=== PATIENT | male | born 1950 | race African-American/Black ===

== ENCOUNTER 2017-12-21 16:21 | Inpatient (IN) | payer MEDICARE ==
[~2017-12-21 16:21] MED LIST: ISOVUE-370 76%-LOCM 1 ML ONE
[2017-12-21] MEDS ORDERED: Albuterol Sulfate 1.25 MG/3 ML NEB ONE ×2 (17:00→17:02)
[2017-12-21] MEDS ORDERED: methylPREDNISolone Sod Succ/PF 125 MG/2 ML VIAL ONE (17:00)
[2017-12-21] MEDS ORDERED: Magnesium Sulfate 2 GM/100 ML BAG ONE (17:00)
[2017-12-21] MEDS ORDERED: Water For Inject, Bacteriostat 30 ML ONE (17:01)
--- NOTE | 2017-12-21 17:20 | RAD ---
PORTABLE UPRIGHT FRONTAL CHEST RADIOGRAPH: Date: 12-21-17 Comparison: None. History: Difficulty breathing. FINDINGS: Cardiac silhouette is prominent suggesting magnification and/or cardiomegaly. No pneumothorax or larg e volume pleural effusion is seen. There is pulmonary vascular prominence with interstitial opacity i n the perihilar regions. Detailed assessment is limited on the basis of patient body habitus and port able technique. Questionable mild right basilar airspace disease noted. IMPRESSION: Prominent cardiac silhouette with pulmonary vascular congestion and interstitial prominence suggestin g interstitial edema. Infectious process, particularly in the right lung base, cannot be excluded. Re commend PA and lateral imaging of the chest following treatment. POS: [facility]
[2017-12-21 18:01] LABS: #Basophils 0.1 thou/uL (0.0-0.2); #Lymphocytes 1.7 thou/uL (1.20-3.40); #Monocytes 0.7 thou/uL (0.11-0.59); #Neutrophils 3.9 thou/uL (1.40-6.50); %Basophils 1.1 % (0.0-1.0); %Eosinophils 0.4 % (0.0-10.0); %Lymphocytes 27.1 % (21.0-51.0); %Monocytes 10.9 % (0.0-10.0); %Neutrophils 60.4 % (42.0-75.0); Hemoglobin 14.9 g/dL (14.0-18.0); Mean Corpuscular HGB CONC 32.7 g/dL (32.0-36.0); Mean Corpuscular Hemoglobin 28.2 pg (27.0-31.0); Mean Corpuscular Volume 86.4 fl (80.0-94.0); Mean Platelet Volume 7.2 fL (7.4-10.4); Platelet Count 241 thou/uL (130-400); RBC Distribution Width 15.9 % (11.5-14.5); Red Blood Cell (RBC) Count 5.29 mill/uL (4.70-6.10); White Blood Cell (WBC) Count 6.4 thou/uL (4.8-10.8)
[2017-12-21 18:15] LABS: ALT (SGPT) 30 U/L (8-55); AST (SGOT) 30 U/L (5-34); Albumin 3.8 g/dL (3.4-4.8); Alkaline Phosphatase 85 U/L (40-150); Anion Gap 15 mmol/L (10-20); BUN (Urea Nitrogen) 17 mg/dL (8.4-25.7); Bilirubin, Total 0.5 mg/dL (0.2-1.2); Calc. Creatinine Clearance 0 mL/min (70-130); Carbon Dioxide 24 mmol/L (23-31); Chloride 100 mmol/L (98-107); Estimated GFR-MDRD 65; Globulin 4.4 g/dL (2.4-3.5); Glucose 119 mg/dL (80-115); Lipase 10 U/L (8-78); Potassium 3.2 mmol/L (3.5-5.1); Protein, Total 8.2 g/dL (5.8-8.1); Sodium 136 mmol/L (136-145)
[2017-12-21 18:18] LABS: CKMB 1.1 ng/mL (0-6.6); Troponin I 0.065 ng/mL (< 0.028)
[2017-12-21] MEDS ORDERED: Potassium Chloride 20 MEQ TAB ONE (19:22)
[2017-12-21] MEDS ORDERED: Furosemide 40 MG/4 ML VIAL ONE (19:22)
[2017-12-21] MEDS ORDERED: Furosemide 20 MG/2 ML VIAL ONE (19:22)
[2017-12-21] MEDS ORDERED: Azithromycin 500 MG in Sodium Chloride 0.9% 250 ML 250 ML IVPB SCH (20:15)
--- NOTE | 2017-12-21 20:31 | CT ---
CT OF THE CHEST WITH CONTRAST: Comparison: None. History: Dyspnea since yesterday with cough. Technique: Multiple contiguous axial images were obtained in a CTA of the chest with contrast perform ed with embolism protocol. Three oblique MIP reformats and direct coronal reformats were performed. FINDINGS: This exam is limited secondary to poor signal to noise ratio given the patient's large body habitus. The pulmonary arteries are opacified without large filling defects to suggest pulmonary emboli. The h eart is normal in size without focal cardiac abnormality. No hilar adenopathy is seen. There are mild ly enlarged mediastinal lymph nodes measuring up to 2.0 cm in short axis. There are multifocal areas of airspace opacity in the lungs. These are seen in the left lower lobe an d in the posterior aspect of the right middle lobe and are consistent with acute infiltrates. No pleu ral effusion or pneumothorax are seen. Calcifications are seen in the left hilar region and likely re present calcified left hilar lymph nodes. No suspicious pulmonary nodule is seen. There is scattered diverticula in the colon. The other visualized subdiaphragmatic structures are unr emarkable. Degenerative changes are seen in the spine. The chest wall soft tissues are unremarkable. IMPRESSION: 1. No evidence of pulmonary thromboembolism on this slightly limited exam. 2. Multifocal infiltrates. 3. Diverticulosis. 4. Nonspecific enlarged mediastinal lymph nodes. POS: [facility]
[2017-12-21] MEDS ORDERED: Ondansetron ODT 4 MG TAB SL PRN (20:51)
[2017-12-21] MEDS ORDERED: Acetaminophen 325 MG TAB PO PRN (20:51)
[2017-12-21] MEDS ORDERED: Ondansetron HCl/PF 4 MG/2 ML Vial IVP PRN (20:51)
[2017-12-21 21:05] VITALS: BMI 51.4
[2017-12-21 21:11] LABS: Troponin I 0.067 ng/mL (< 0.028)
[2017-12-21] MEDS ORDERED: HYDROcodone/Acetaminophen 7.5/325 mg Tablet PO PRN (22:34)
[2017-12-21] MEDS ORDERED: HumaLOG 300 UNITS/3 ML VIAL SC PRN ×2 (23:10)
[2017-12-21] MEDS ORDERED: Dextrose 50% Abboject 50 ML SYRINGE SLOW IVP PRN (23:10)
[2017-12-21] MEDS ORDERED: Dextrose 5% in Water 1,000 ML IV PRN (23:10)
[2017-12-21] MEDS ORDERED: Oxymetazoline HCl 0.05% ( 15 ML ) NASAL SCH (23:15)
[2017-12-21 23:22] LABS: Actual Bicarbonate (HCO3a) 26.4 mEq/L (22-26); Base Excess (BEa) -0.8 mEq/L (0 (+/-) 2.5); CO2 Tension 54.3 mmHg (35.0-45.0); Hemoglobin (Hb) 14.3 g/dL (14.0-18.0); O2 Tension (PaO2) 71.8 mmHg (80.0-100.0); pH, Arterial 7.31 (7.35-7.45)
[2017-12-21 23:23] LABS: ALV-art Gradient 214.325 (0-20); Calcium, Ionized 1.1 mmol/L (1.12-1.30); Puncture Site LRA
[2017-12-21] MEDS ORDERED: Carvedilol 3.125 MG TAB PO SCH (23:30)
[2017-12-21] MEDS: Albuterol Sulfate 2.5 mg/3 ml Neb NEB PRN (23:45)
--- NOTE | 2017-12-22 00:24 | HP ---
DATE OF ADMISSION: 12/21/2017 CHIEF COMPLAINT: Shortness of breath. HISTORY OF PRESENT ILLNESS: This is a 67-year-old morbidly obese -[place] male with known hi story of hypertension and type 2 diabetes mellitus. He went to his primary care physician today as h e was having some congestion in his nose and was having some fever for the past few days. When he pr esented there, his primary care physician at [place], he checked his saturations which were low in 80s , so he sent the patient to [facility] via EMS. When the patient arrived here, he had low saturat ions in 80s and had to put on rebreather mask. The patient was noted to have elevated BNP and has ne olivia diagnosed with CHF or no history of any coronary artery disease in the past. The patient had a C T of the chest. He had elevated D-dimer, which did not show any evidence of pulmonary embolism, but showed multifocal pneumonia. The patient was admitted to the [facility] and the patient was seen over there. He was alert and oriented. He continues to be on the Ventimask and was saturating 92%-94%. No ABG was ordered. The patient w as able to sleep deeply and had to wake him up from sleep. He denied having any chest pain, no nause a, no vomiting, no diarrhea, no constipation. He did have cough, nonproductive for the past few days . He denies having any exposure to sick people. PAST MEDICAL HISTORY: 1. Type 2 diabetes mellitus. 2. Hypertension. PAST SURGICAL HISTORY: None. SOCIAL HISTORY: The patient is a nonsmoker. No history of alcohol. No history of illicit drug use. FAMILY HISTORY: No significant family history of coronary artery disease or any premature deaths in the family. REVIEW OF SYSTEMS: All 12 systems are reviewed with the patient thoroughly and found to be negative. The following complete review of systems was negative, unless otherwise mentioned in the HPI or bel ow: Constitutional: Weight loss or gain, sense of well-being, ability to conduct usual activities, exercise tolerance. Skin/Breast: Rash, itching, changes in hair growth or loss, nail changes, breas t lumps, tenderness, swelling, nipple discharge. Eyes: Vision, double vision, tearing, blind spots, pain. ENT/Mouth: Headaches (location, time of o nset, duration, precipitating factors), vertigo, lightheadedness, injury. Vision, double vision, tea ring, blind spots, pain, nose bleeding, colds, obstruction, discharge, dental difficulties, gingival bleeding, dentures, neck stiffness, pain, tenderness, masses in thyroid or other areas Cardiovascular: Precordial pain, substernal distress, palpitations, syncope, dyspnea on exertion, ort hopnea, nocturnal paroxysmal dyspnea, edema, cyanosis, hypertension, heart murmurs, varicosities, phl ebitis, claudication. Respiratory: Pain, shortness of breath, wheezing, stridor, cough, hemoptysis, fever or night sweats. Gastrointestinal: Poor appetite, dysphagia, indigestion, abdominal pain, he artburn, eructation, nausea, vomiting, hematemesis, jaundice, constipation, or diarrhea, abnormal sto ols (goldie-colored, tarry, bloody, greasy, foul smelling), flatulence, hemorrhoids, recent changes in bowel habits. Genitourinary: Urgency, frequency, dysuria, nocturia, hematuria, polyuria, oliguria, unusual (or change in) color of urine, stones, hesitancy, change in size of stream, dribbling, acute retention or incontinence, libido, potency. Musculoskeletal: Pain, swelling, redness or heat of muscles or joints, limitation, of motion, muscul ar weakness, atrophy, cramps. Neurologic/Psychiatric: Convulsions, paralyses, tremor, incoordinatio n, paresthesias, difficulties with memory of speech, sensory or motor disturbances, or muscular coord ination (ataxia, tremor), emotional problems, anxiety, depression, previous psychiatric care, unusual perceptions, hallucinations. Allergy/Immunologic: Skin rash, anemia, bleeding tendency, polydipsia , polyuria, intolerance to heat or cold. ALLERGIES: LISINOPRIL. HOME MEDICATIONS: 1. Aspirin 81 mg p.o. daily. 2. Diltiazem 240 mg p.o. daily. 3. Hydrochlorothiazide 25 mg p.o. daily. 4. Indomethacin 50 mg p.o. t.i.d. 5. Linagliptin Tradjenta 5 mg p.o. daily. 6. Metformin 1000 mg p.o. b.i.d. 7. Simvastatin 20 mg p.o. daily. PHYSICAL EXAMINATION: VITAL SIGNS: Blood pressures are 145/81, heart rate is 100, respiratory rate is 24, saturations 95% on Venturi mask. GENERAL: The patient is seen lying in the bed supine with Ventimask, he was drowsy at this time, oth erwise, oriented when he woke up. HEENT: Atraumatic, normocephalic. PERRLA. Extraocular movements were intact. Oral mucosa is pink and moist. CARDIOVASCULAR: S1, S2 normal. No murmurs, rubs or gallops. LUNGS: Bilateral air entry was equal. No wheezing and no crackles, but increased respiratory rate w as noted. ABDOMEN: Soft, nontender, no guarding, no rebound tenderness. Bowel sounds normal. MUSCULOSKELETAL: No calf tenderness. No pedal edema, no joint tenderness, no joint swelling. SKIN: No cyanosis, no erythema, no rash, no pallor. CENTRAL NERVOUS SYSTEM: Cranial nerve examination II-XII intact. No focal deficits were noted. PSYCHIATRIC: No signs of suicidal ideation, no signs of jeyson was noted. NECK: No JVD was noted. No thyromegaly was noted. LABORATORY DATA: Sodium is 136, potassium is 3.2, chloride is 100, bicarbonate is 24, BUN is 17, cre atinine 1.3, blood sugar 119. Troponin 0.065. BNP was 1200. D-dimer 1.0. WBC 6.4, hemoglobin is 1 4.9, hematocrit is 45.7. ASSESSMENT: 1. Acute hypoxic respiratory failure. 2. Acute multifocal pneumonia. 3. Acute on chronic congestive heart failure, likely diastolic dysfunction. 4. Sbp-KD-njclcfczo myocardial infarction. 5. Acute hypokalemia. 6. Type 2 diabetes mellitus. 7. Hypertension. 8. Hyperlipidemia. PLAN: 1. The plan is to closely monitor this patient in the IMCU as the patient is on Ventimask. We will d o an ABG at this time to know the level of oxygenation. If the patient has elevated CO2, we will sta rt the patient on the BiPAP. 2. We will continue the patient on IV antibiotics. The patient has been started on azithromycin wit hout Rocephin 1 gram daily. We will closely monitor. The patient has a normal white count. 3. The patient has markedly elevated BNP with no history of congestive heart failure. We will do a 2D echo at this time and look for any wall motion abnormalities. The patient has elevated troponins most likely from the demand ischemia. We will start the patient on the beta jose and continue the patient with aspirin and statin. 4. We will plan to consult Cardiology if any worsening troponins or any worsening chest pain. 5. The patient has type 2 diabetes mellitus, well controlled. We will continue the patient on Tradj enta and we will start the patient on sliding scale insulin. 6. The patient has signs of acute sinusitis, we will do Nasonex twice a day and aspirin twice a day, we will closely monitor. 7. Deep venous thrombosis prophylaxis. Lovenox 40 mg subcutaneously daily. I spent 75 minutes with this patient. Of this, one hour as critical care time.
[2017-12-22] MEDS: Albuterol Sulfate 2.5 mg/3 ml Neb NEB PRN (03:01)
[2017-12-22 05:15] LABS: Anion Gap 15 mmol/L (10-20); BUN (Urea Nitrogen) 23 mg/dL (8.4-25.7); Calc. Creatinine Clearance 101 mL/min (70-130); Calcium 9.1 mg/dL (7.8-10.44); Carbon Dioxide 28 mmol/L (23-31); Chloride 100 mmol/L (98-107); Estimated GFR-MDRD 53; Glucose 178 mg/dL (80-115); Potassium 3.9 mmol/L (3.5-5.1); Sodium 139 mmol/L (136-145)
[2017-12-22] MEDS: Furosemide 20 MG/2 ML VIAL SLOW IVP SCH ×2 (05:36→14:48)
[2017-12-22 05:42] LABS: #Lymphocytes 0.6 thou/uL (1.20-3.40); #Monocytes 0.1 thou/uL (0.11-0.59); #Neutrophils 3.4 thou/uL (1.40-6.50); %Basophils 0.4 % (0.0-1.0); %Eosinophils 0.3 % (0.0-10.0); %Monocytes 2.2 % (0.0-10.0); %Neutrophils 83.1 % (42.0-75.0); Hemoglobin 14.1 g/dL (14.0-18.0); Mean Corpuscular HGB CONC 30.2 g/dL (32.0-36.0); Mean Corpuscular Hemoglobin 26.1 pg (27.0-31.0); Mean Corpuscular Volume 86.4 fl (80.0-94.0); Mean Platelet Volume 7.1 fL (7.4-10.4); Platelet Count 268 thou/uL (130-400); RBC Distribution Width 16.1 % (11.5-14.5); Red Blood Cell (RBC) Count 5.42 mill/uL (4.70-6.10); White Blood Cell (WBC) Count 4.1 thou/uL (4.8-10.8)
[2017-12-22] MEDS: Hydrochlorothiazide 25 MG TAB PO SCH (08:18)
[2017-12-22] MEDS: Famotidine/PF 20 mg/2ml Vial SLOW IVP SCH ×2 (08:18→21:11)
[2017-12-22] MEDS: Carvedilol 3.125 MG TAB PO SCH ×2 (08:18→21:11)
[2017-12-22] MEDS: Alogliptin 25 MG TAB PO SCH (08:19)
[2017-12-22] MEDS: Oxymetazoline HCl 0.05% ( 15 ML ) NASAL SCH ×2 (08:19→21:09)
[2017-12-22] MEDS: Enoxaparin Sodium 40 MG/0.4 ML SYRINGE SC SCH (08:22)
[2017-12-22] MEDS: Fluticasone Propionate Nasal Spray 16 gm Bottle NASAL SCH ×2 (08:23→21:34)
[2017-12-22] MEDS ORDERED: Non-Formulary Item 1 EACH (Linagliptin [Tradjenta] 5 MG) PO SCH (09:00)
[2017-12-22] MEDS ORDERED: Prevnar 13-Val Conj/PF 0.5 ML SYRINGE IM ONE (09:00)
[2017-12-22] MEDS: Doxycycline 100 MG CAP PO SCH ×2 (10:00→21:10)
--- NOTE | 2017-12-22 10:31 | PDOC.PN ---
- Subjective Encounter Start Date: 12/22/17 Encounter Start Time: 10:29 Subjective: mild congestion - Objective Resuscitation Status: Resuscitation Status FULL:Full Resuscitation MAR Reviewed: Yes Vital Signs & Weight: Vital Signs (12 hours) Temp Pulse Resp BP BP Pulse Ox 12/22/17 08:18 82 137/86 12/22/17 08:04 82 22 H 88 L 12/22/17 07:56 97.0 F L 84 20 93 L 12/22/17 07:39 97.0 F L 84 20 111/74 96 12/22/17 07:17 97.8 F 86 18 111/74 92 L 12/22/17 04:00 96.3 F L 79 18 122/72 96 12/22/17 03:01 80 20 92 L 12/22/17 00:00 96.3 F L 85 22 H 138/62 91 L 12/21/17 23:45 91 20 95 Weight Weight 347 lb 12.8 oz I&O: 12/21/17 12/22/17 12/23/17 06:59 06:59 06:59 Intake Total 470 320 Output Total 575 Balance -105 320 Result Diagrams: 12/22/17 04:13 12/22/17 04:13 Additional Labs: Accuchecks 12/22/17 12/21/17 05:48 21:14 POC Glucose 147 H 171 H Phys Exam - Physical Examination Neck: no JVD scattered wheezes, rhonchi Cardiovascular: RRR, no significant murmur Gastrointestinal: soft, non-tender, positive bowel sounds Musculoskeletal: edema present Dx/Plan (1) PNA (pneumonia) Code(s): J18.9 - PNEUMONIA, UNSPECIFIED ORGANISM Status: Acute Qualifiers: Aspiration pneumonia type: unspecified Laterality: unspecified laterality Lung location: unspecified part of lung (2) HTN (hypertension) Code(s): I10 - ESSENTIAL (PRIMARY) HYPERTENSION Status: Acute Qualifiers: Hypertension type: essential hypertension Qualified Code(s): I10 - Essential (primary) hypertension (3) DM type 2 causing CKD stage 3 Code(s): E11.22 - TYPE 2 DIABETES MELLITUS W DIABETIC CHRONIC KIDNEY DISEASE; N18.3 - CHRONIC KIDNEY DISEASE, STAGE 3 (MODERATE) Status: Acute Qualifiers: Diabetes mellitus long-term insulin use: without long-term use Qualified Code(s): E11.22 - Type 2 diabetes mellitus with diabetic chronic kidney disease ; N18.3 - Chronic kidney disease, stage 3 (moderate); N18.3 - Chronic kidney disease, stage 3 (moderate) (4) Acute respiratory failure with hypoxia and hypercapnia Code(s): J96.01 - ACUTE RESPIRATORY FAILURE WITH HYPOXIA; J96.02 - ACUTE RESPIRATORY FAILURE WITH HYPERCAPNIA Status: Acute - Plan cont antibx,etc -: obtain echo results -: avoid indocin -: accu/ss / OHA * .
--- NOTE | 2017-12-22 12:01 | CON ---
DATE OF CONSULTATION: 12/22/2017 Tino Berrios is a morbidly obese male who sees Dr. Mei in [place]. He says pieter murray sees Dr. Monterroso at [facility] once here for cardiac issues. He presented yesterday with sinus infection for 3 days, some shortness of breath and cough, but he de nies any fever or chills. He smoked 2 packs a day for almost 20 years, quit smoking 35 years ago without any prior history of T B, pneumonia or bronchial asthma. He states he sleeps well, does not snore, does not feel tired, unc lear how much he walks on a regular day. PAST MEDICAL HISTORY: Pertinent for hypertension and diabetes. Unknown coronary artery disease. PAST SURGICAL HISTORY: Surprisingly none. TOBACCO AND ALCOHOL: Tobacco and alcohol as noted. Quit smoking 35 years ago. No alcohol. MEDICATIONS: His list of medicine from home has included metformin 1000 twice a day, Zocor 20, Tradj enta 5, indomethacin 50, hydrochlorithiazide 25, Cardizem 240, aspirin 81. 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 ALLERGIES: LISINOPRIL. REVIEW OF SYSTEMS: Otherwise, 10 point negative. Please note I reviewed all his old x-rays. No medical records in this hospital. PHYSICAL EXAMINATION: VITAL SIGNS: Blood pressure 130/86, sats 88 on 5 liters, temperature 97, respirations 18. CHEST: Chest revealed decreased breath sounds with minimal wheezing. Expiration prolonged. CARDIAC: Normal S1-S2. No gallops. ABDOMEN: Soft. No masses. LABORATORY: PO2 71, pCO2 40.54. His pH 7.31. Electrolytes are normal. Creatinine 1.59, glucose 14 7. BNP is 1299. X-ray shows cardiomegaly. His thyroid function is not seen, it is being ordered. D-dimer was slight ly elevated. He had a CT angio done which shows no PE, bilateral infiltrates. IMPRESSION: 1. Chronic sinusitis. 2. Morbid obesity, possible sleep apnea. 3. Abnormal x-ray, probably a pneumonia. 4. Chronic obstructive pulmonary disease exacerbation. 5. Renal failure. 6. Diabetes. PLAN: Significant hypoxemia persists. An echo has been ordered. I agree with nebulizer treatments, steroids, and antibiotics. Nocturnal ventilation. He probably needs an outpatient sleep study . I will follow. This is a consultation note, 70 minutes of which 50% in direct patient care.
[2017-12-22] MEDS ORDERED: cefTRIAXone\\ROCEPHIN 2 GM in Sodium Chloride 0.9% 100 ML IVPB SCH (20:00)
[2017-12-22] MEDS ORDERED: Simvastatin 20 MG TAB PO SCH (21:00)
[2017-12-22] MEDS: Atorvastatin Calcium 10 MG TAB PO SCH (21:11)
[2017-12-23 04:13] LABS: #Lymphocytes 1.3 thou/uL (1.20-3.40); #Monocytes 0.8 thou/uL (0.11-0.59); %Basophils 0.3 % (0.0-1.0); %Eosinophils 0.1 % (0.0-10.0); %Lymphocytes 17.8 % (21.0-51.0); %Monocytes 11.2 % (0.0-10.0); %Neutrophils 70.6 % (42.0-75.0); Hemoglobin 14.7 g/dL (14.0-18.0); Mean Corpuscular HGB CONC 31.5 g/dL (32.0-36.0); Mean Corpuscular Volume 88.8 fl (80.0-94.0); Mean Platelet Volume 7.5 fL (7.4-10.4); Platelet Count 267 thou/uL (130-400); RBC Distribution Width 15.9 % (11.5-14.5); Red Blood Cell (RBC) Count 5.27 mill/uL (4.70-6.10); White Blood Cell (WBC) Count 7.1 thou/uL (4.8-10.8)
[2017-12-23 04:29] LABS: Anion Gap 15 mmol/L (10-20); BUN (Urea Nitrogen) 35 mg/dL (8.4-25.7); Calc. Creatinine Clearance 105 mL/min (70-130); Calcium 9.1 mg/dL (7.8-10.44); Carbon Dioxide 28 mmol/L (23-31); Chloride 100 mmol/L (98-107); Estimated GFR-MDRD 55; Glucose 146 mg/dL (80-115); Potassium 3.9 mmol/L (3.5-5.1); Sodium 139 mmol/L (136-145)
[2017-12-23] MEDS: Furosemide 20 MG/2 ML VIAL SLOW IVP SCH ×2 (05:53→13:30)
--- NOTE | 2017-12-23 08:14 | PRG ---
DATE OF SERVICE: 12/23/2017 He is awake, alert, responsive. Still complaining of some sinus congestion. PHYSICAL EXAMINATION: VITAL SIGNS: His sats are 96 on 4 liters, blood pressure 150/89, respirations 18, temperature 98. CHEST: Chest revealed decreased breath sounds, no wheezing. CARDIAC: Normal S1-S2. No gallops. ABDOMEN: Soft, no masses. LABORATORY: White count normal 7000, H&H of 14 and 43, platelet count normal. Creatinine 1.5. IMPRESSION: 1. Pneumonia. 2. Sinusitis. PLAN: I have switched over to oral antibiotics. Saline nasal spray was initiated several times a da y. He can be transferred out of the [facility]. Probably would benefit from an outpatient sleep study.
[2017-12-23] MEDS: predniSONE 20 MG TAB PO SCH (08:20)
[2017-12-23] MEDS: Carvedilol 3.125 MG TAB PO SCH ×2 (08:21→21:53)
[2017-12-23] MEDS: Alogliptin 25 MG TAB PO SCH (08:21)
[2017-12-23] MEDS: Doxycycline 100 MG CAP PO SCH ×2 (08:22→21:53)
[2017-12-23] MEDS: Enoxaparin Sodium 40 MG/0.4 ML SYRINGE SC SCH (08:22)
[2017-12-23] MEDS: Hydrochlorothiazide 25 MG TAB PO SCH (08:23)
[2017-12-23] MEDS: Famotidine/PF 20 mg/2ml Vial SLOW IVP SCH ×2 (08:23→21:45)
[2017-12-23] MEDS: Fluticasone Propionate Nasal Spray 16 gm Bottle NASAL SCH ×2 (08:23→21:52)
[2017-12-23] MEDS: Sodium Chloride 0.65% Nasal 44 ML BOT EA NARE SCH ×3 (10:30→22:01)
--- NOTE | 2017-12-23 10:53 | PDOC.PN ---
- Subjective Encounter Start Date: 12/23/17 Encounter Start Time: 10:52 Subjective: less sob, no fever - Objective Resuscitation Status: Resuscitation Status FULL:Full Resuscitation MAR Reviewed: Yes Vital Signs & Weight: Vital Signs (12 hours) Temp Pulse Resp BP BP BP Pulse Ox 12/23/17 10:50 79 20 92 L 12/23/17 08:21 86 129/89 12/23/17 08:04 82 16 12/23/17 08:00 98.1 F 77 18 97 12/23/17 07:49 98.1 F 77 18 150/79 H 97 12/23/17 04:00 97.7 F 85 22 H 138/75 92 L 12/23/17 00:00 98.3 F 77 21 H 126/54 L 91 L Weight Weight 346 lb 5.539 oz I&O: 12/22/17 12/23/17 12/24/17 06:59 06:59 06:59 Intake Total 470 1020 Output Total 575 Balance -105 1020 Result Diagrams: 12/23/17 03:28 12/23/17 03:28 Additional Labs: Accuchecks 12/23/17 12/23/17 12/22/17 10:33 05:54 21:17 POC Glucose 200 H 124 H 155 H 12/22/17 16:37 POC Glucose 115 H Phys Exam - Physical Examination Neck: no JVD mild wheezes, rhonchi diffuse over all [place] Cardiovascular: RRR, no significant murmur Gastrointestinal: soft, non-tender, positive bowel sounds Musculoskeletal: edema present Dx/Plan (1) PNA (pneumonia) Code(s): J18.9 - PNEUMONIA, UNSPECIFIED ORGANISM Status: Acute Qualifiers: Aspiration pneumonia type: unspecified Laterality: unspecified laterality Lung location: unspecified part of lung (2) HTN (hypertension) Code(s): I10 - ESSENTIAL (PRIMARY) HYPERTENSION Status: Acute Qualifiers: Hypertension type: essential hypertension Qualified Code(s): I10 - Essential (primary) hypertension (3) DM type 2 causing CKD stage 3 Code(s): E11.22 - TYPE 2 DIABETES MELLITUS W DIABETIC CHRONIC KIDNEY DISEASE; N18.3 - CHRONIC KIDNEY DISEASE, STAGE 3 (MODERATE) Status: Acute Qualifiers: Diabetes mellitus mcc insulin use: without long term care phlebotomist use Qualified Code(s): E11.22 - Type 2 diabetes mellitus with diabetic chronic kidney disease ; N18.3 - Chronic kidney disease, stage 3 (moderate); N18.3 - Chronic kidney disease, stage 3 (moderate) (4) Acute respiratory failure with hypoxia and hypercapnia Code(s): J96.01 - ACUTE RESPIRATORY FAILURE WITH HYPOXIA; J96.02 - ACUTE RESPIRATORY FAILURE WITH HYPERCAPNIA Status: Acute - Plan echo still pending -: blood C&S neg, cont current antibx -: cont nebs , steroids -: cont accu/ss/oral hypoglycemic * .
[2017-12-23] MEDS ORDERED: Metolazone 5 MG TAB PO SCH (14:00)
--- NOTE | 2017-12-23 15:21 | RAD ---
RADIOGRAPH CHEST 1 VIEW: Date: 12/23/2017 Time: 12:59 p.m. HISTORY: A 67-year-old male with hypoxemia. COMPARISON: 12/21/2017 FINDINGS: Cardiomegaly. Pulmonary vascular engorgement, diffusely. Air space density in the right medial lung base is worse than before. This was shown by the subsequent CTA of 12/21/2017 to be localized to th e right middle lobe. That CTA also showed an air space density in the contralateral left lower lobe, which is obscured by the cardiac shadow on the current study. No pneumothorax. IMPRESSION: 1. Interval worsening of right middle lobe infiltrate, evidence for worsening right middle lobe pneu monia. 2. The known left lower lobe infiltrate is difficult to visualize. 3. Cardiomegaly and pulmonary vascular engorgement is evidence for minimal or mild congestive heart failure. AFUA [] POS: [facility]
--- NOTE | 2017-12-23 16:55 | PDOC.EVN ---
Event Note - Event Note Event Note: patient comfortable. O2 sats high *)s. cxr adverse PVC. start higher dose iv lasix. echo results still pending
[2017-12-23] MEDS: Furosemide 100 MG/10 ML VIAL SLOW IVP SCH ×2 (17:22→17:23)
[2017-12-23] MEDS: Atorvastatin Calcium 10 MG TAB PO SCH (21:53)
[2017-12-24] MEDS: Furosemide 100 MG/10 ML VIAL SLOW IVP SCH (06:33)
--- NOTE | 2017-12-24 08:15 | PDOC.PN ---
- Subjective Encounter Start Date: 12/24/17 Encounter Start Time: 08:14 Mr. Berrios was seen today in follow-up today of acute respiratory failure. He is still short of breath, but says he is a little better today than yesterday. - Objective Resuscitation Status: Resuscitation Status FULL:Full Resuscitation MAR Reviewed: Yes Vital Signs & Weight: Vital Signs (12 hours) Temp Pulse Resp BP BP Pulse Ox 12/24/17 07:14 97.6 F 89 18 157/86 H 90 L 12/24/17 07:04 94 24 H 93 L 12/24/17 04:00 98.5 F 72 20 124/63 96 12/24/17 00:00 98.0 F 84 22 H 146/69 H 95 Weight Weight 344 lb 5.793 oz I&O: 12/23/17 12/24/17 12/25/17 06:59 06:59 06:59 Intake Total 1020 2032 Balance 1020 2032 Result Diagrams: 12/23/17 03:28 12/23/17 03:28 Additional Labs: Accuchecks 12/24/17 12/23/17 12/23/17 06:20 21:53 16:34 POC Glucose 134 H 119 H 123 H 12/23/17 10:33 POC Glucose 200 H Phys Exam - Physical Examination HEENT: PERRLA Respiratory: no rhonchi, wheezing present + rales at the bases, Cardiovascular: RRR, no significant murmur, no rub Gastrointestinal: soft, non-tender, positive bowel sounds Musculoskeletal: edema present trace pedal edema Dx/Plan (1) Pneumonia, community acquired Code(s): J18.9 - PNEUMONIA, UNSPECIFIED ORGANISM Status: Acute (2) Morbid obesity with BMI of 50.0-59.9, adult Code(s): E66.01 - MORBID (SEVERE) OBESITY DUE TO EXCESS CALORIES; Z68.43 - BODY MASS INDEX (BMI) 50-59.9 , ADULT Status: Acute (3) Acute respiratory failure with hypoxia and hypercapnia Code(s): J96.01 - ACUTE RESPIRATORY FAILURE WITH HYPOXIA; J96.02 - ACUTE RESPIRATORY FAILURE WITH HYPERCAPNIA Status: Acute (4) DM type 2 causing CKD stage 3 Code(s): E11.22 - TYPE 2 DIABETES MELLITUS W DIABETIC CHRONIC KIDNEY DISEASE; N18.3 - CHRONIC KIDNEY DISEASE, STAGE 3 (MODERATE) Status: Acute Qualifiers: Diabetes mellitus fci insulin use: without track man use Qualified Code(s): E11.22 - Type 2 diabetes mellitus with diabetic chronic kidney disease ; N18.3 - Chronic kidney disease, stage 3 (moderate); N18.3 - Chronic kidney disease, stage 3 (moderate) (5) HTN (hypertension) Code(s): I10 - ESSENTIAL (PRIMARY) HYPERTENSION Status: Acute Qualifiers: Hypertension type: essential hypertension Qualified Code(s): I10 - Essential (primary) hypertension - Plan * Pneumonia- chest X-ray results noted- continue Doxycycline, and await further recommendations from Pulmonology * Possible heart failure- await the results of the Echo * Probable Obesity Hypoventilation- continue BiPAP at night- I discussed with patient that he should have an outpatient sleep study * HTN- blood pressure is stable * CKD- stable- will check a renal panel today.
--- NOTE | 2017-12-24 08:50 | PRG ---
DATE OF SERVICE: 12/24/2017 Awake, alert, responsive. Secondary to results of the echo and x-ray yesterday shows no obvious infi ltrate. PHYSICAL EXAMINATION: VITAL SIGNS: Sats are 90 on 5 liters, temperature 97, blood pressure 137/87. CHEST: Chest revealed decreased breath sounds, no wheezing. CARDIAC: Normal S1-S2. No gallops. ABDOMEN: Soft. No masses. IMPRESSION: 1. Acute on chronic respiratory failure. 2. Morbid obesity. 3. Sleep apnea. 4. Probably congestive heart failure. 5. Renal failure. PLAN: Neb treatments, steroids, BiPAP. He needs a sleep study. Aggressive PT. I will follow.
[2017-12-24 09:22] LABS: Anion Gap 13 mmol/L (10-20); BUN (Urea Nitrogen) 41 mg/dL (8.4-25.7); Calc. Creatinine Clearance 114 mL/min (70-130); Calcium 9.1 mg/dL (7.8-10.44); Carbon Dioxide 36 mmol/L (23-31); Chloride 94 mmol/L (98-107); Estimated GFR-MDRD 62; Glucose 158 mg/dL (80-115); Potassium 3.3 mmol/L (3.5-5.1); Sodium 140 mmol/L (136-145)
[2017-12-24] MEDS: Carvedilol 3.125 MG TAB PO SCH ×2 (09:51→22:00)
[2017-12-24] MEDS: Alogliptin 25 MG TAB PO SCH (09:51)
[2017-12-24] MEDS: Doxycycline 100 MG CAP PO SCH ×2 (09:51→21:59)
[2017-12-24] MEDS: predniSONE 20 MG TAB PO SCH (09:51)
[2017-12-24] MEDS: Enoxaparin Sodium 40 MG/0.4 ML SYRINGE SC SCH (09:52)
[2017-12-24] MEDS: Sodium Chloride 0.65% Nasal 44 ML BOT EA NARE SCH ×3 (09:53→22:01)
[2017-12-24] MEDS: Famotidine/PF 20 mg/2ml Vial SLOW IVP SCH (09:53)
[2017-12-24] MEDS: Fluticasone Propionate Nasal Spray 16 gm Bottle NASAL SCH ×2 (09:53→22:02)
[2017-12-24] MEDS: Atorvastatin Calcium 10 MG TAB PO SCH (21:59)
[2017-12-24] MEDS: Famotidine 20 MG TAB PO SCH (21:59)
[2017-12-25 05:05] LABS: BUN (Urea Nitrogen) 37 mg/dL (8.4-25.7); Calc. Creatinine Clearance 133 mL/min (70-130); Calcium 9.2 mg/dL (7.8-10.44); Estimated GFR-MDRD 74; Glucose 124 mg/dL (80-115)
[2017-12-25 05:14] LABS: Anion Gap 16 mmol/L (10-20); Carbon Dioxide 34 mmol/L (23-31); Chloride 92 mmol/L (98-107); Potassium 3.7 mmol/L (3.5-5.1); Sodium 138 mmol/L (136-145)
[2017-12-25] MEDS: Famotidine 20 MG TAB PO SCH ×2 (08:31→20:21)
[2017-12-25] MEDS: Carvedilol 3.125 MG TAB PO SCH ×2 (08:31→20:22)
[2017-12-25] MEDS: Alogliptin 25 MG TAB PO SCH (08:31)
[2017-12-25] MEDS: Doxycycline 100 MG CAP PO SCH ×2 (08:31→20:22)
[2017-12-25] MEDS: Furosemide 20 MG TAB PO SCH (08:31)
[2017-12-25] MEDS: predniSONE 20 MG TAB PO SCH (08:31)
[2017-12-25] MEDS: Enoxaparin Sodium 40 MG/0.4 ML SYRINGE SC SCH (08:32)
[2017-12-25] MEDS: acetaZOLAMIDE Sodium 500 mg Vial IVP SCH (08:32)
[2017-12-25] MEDS: Fluticasone Propionate Nasal Spray 16 gm Bottle NASAL SCH ×2 (08:32→20:27)
[2017-12-25] MEDS: Sodium Chloride 0.65% Nasal 44 ML BOT EA NARE SCH ×3 (08:32→20:23)
--- NOTE | 2017-12-25 13:50 | PDOC.PN ---
- Subjective Encounter Start Date: 12/25/17 Encounter Start Time: 13:48 Mr. Berrios was seen today in follow-up of Pneumonia and respiratory failure. He says he feels much better and wants to go home. - Objective Resuscitation Status: Resuscitation Status FULL:Full Resuscitation MAR Reviewed: Yes Vital Signs & Weight: Vital Signs (12 hours) Temp Pulse Pulse Pulse Resp BP BP 12/25/17 13:24 85 20 12/25/17 11:15 98.4 F 79 18 12/25/17 10:12 84 78 166/59 H 142/77 H 12/25/17 09:50 12/25/17 09:48 79 24 H 12/25/17 08:31 80 12/25/17 07:48 98.3 F 80 17 12/25/17 07:00 98.3 F 80 17 12/25/17 04:00 98.4 F 77 16 BP Pulse Ox Pulse Ox Pulse Ox 12/25/17 13:24 89 L 12/25/17 11:15 110/59 L 89 L 12/25/17 10:12 90 L 93 L 12/25/17 09:50 92 L 12/25/17 09:48 92 L 12/25/17 08:31 12/25/17 07:48 92 L 12/25/17 07:00 131/60 89 L 12/25/17 04:00 100/55 L 91 L Weight Weight 339 lb 11.717 oz I&O: 12/24/17 12/25/17 12/26/17 06:59 06:59 06:59 Intake Total 2 2744 Output Total 4000 Balance 2032 -1256 Result Diagrams: 12/23/17 03:28 12/25/17 04:20 Additional Labs: Accuchecks 12/25/17 12/25/17 12/24/17 11:13 05:35 20:23 POC Glucose 152 H 119 H 145 H 12/24/17 16:29 POC Glucose 150 H Phys Exam - Physical Examination HEENT: PERRLA Respiratory: wheezing present + wheezing at the bases Cardiovascular: RRR, no significant murmur, no rub Gastrointestinal: soft, non-tender, positive bowel sounds Musculoskeletal: edema present 1+ edema Dx/Plan (1) Pneumonia, community acquired Code(s): J18.9 - PNEUMONIA, UNSPECIFIED ORGANISM Status: Acute (2) Morbid obesity with BMI of 50.0-59.9, adult Code(s): E66.01 - MORBID (SEVERE) OBESITY DUE TO EXCESS CALORIES; Z68.43 - BODY MASS INDEX (BMI) 50-59.9 , ADULT Status: Acute (3) Acute respiratory failure with hypoxia and hypercapnia Code(s): J96.01 - ACUTE RESPIRATORY FAILURE WITH HYPOXIA; J96.02 - ACUTE RESPIRATORY FAILURE WITH HYPERCAPNIA Status: Acute (4) DM type 2 causing CKD stage 3 Code(s): E11.22 - TYPE 2 DIABETES MELLITUS W DIABETIC CHRONIC KIDNEY DISEASE; N18.3 - CHRONIC KIDNEY DISEASE, STAGE 3 (MODERATE) Status: Acute Qualifiers: Diabetes mellitus intermediate card tender insulin use: without jail use Qualified Code(s): E11.22 - Type 2 diabetes mellitus with diabetic chronic kidney disease ; N18.3 - Chronic kidney disease, stage 3 (moderate); N18.3 - Chronic kidney disease, stage 3 (moderate) (5) HTN (hypertension) Code(s): I10 - ESSENTIAL (PRIMARY) HYPERTENSION Status: Acute Qualifiers: Hypertension type: essential hypertension Qualified Code(s): I10 - Essential (primary) hypertension - Plan * Pneumonia with acute hypoxic respiratory failure-he is likely stable for discharge home as he is on oral medications ( diamox can be changed to oral * Will need home oxygen arranged, and will need an outpatient sleep study * DM- blood glucose is stable * HTN- continue current medications * Will discuss with Dr. Denney.
[2017-12-25] MEDS ORDERED: Furosemide 40 MG/4 ML VIAL SLOW IVP SCH (16:30)
--- NOTE | 2017-12-25 16:53 | PRG ---
DATE OF SERVICE: 12/25/2017 SERVICE: Pulmonary Medicine. INTERVAL HISTORY: The patient is doing really well from a respiratory standpoint. He is breathing c omfortably. He has no chest discomfort or shortness of breath. He has been able to get up and move around the room a little bit with some minimal assistance. PHYSICAL EXAMINATION: VITAL SIGNS: Afebrile, pulse 78, blood pressure 126/69, respirations 19 and saturation 91% on 3 lite rs nasal cannula. GENERAL: The patient is awake and alert, in no apparent distress. LUNGS: Decent air entry. There is not a prolonged expiratory phase, though there is a polyphonic wh eeze. Crackles are evident. HEART: Normal rate and regular. ABDOMEN: Soft, nontender and nondistended. Bowel sounds are positive. MUSCULOSKELETAL: No cyanosis or clubbing. There is 1+ pitting in the bilateral lower extremities. NEUROLOGIC: Nonfocal. LABORATORY DATA: PCO2 54. Creatinine 1.19 and down trending, bicarbonate 34. Basic metabolic profi le is otherwise unremarkable. Blood cultures x2 are negative. ASSESSMENT: 1. Acute on chronic hypoxic and hypercapnic respiratory failure. 2. Obesity hypoventilation syndrome. 3. Obstructive sleep apnea. 4. Acute kidney injury, resolved. PLAN: We will deescalate his nebulized medications q.6 hours. Steroids will be transitioned over to p.o. He will continue using BiPAP at night while sleeping. He will need to follow up with Dr. Denney in 1-2 weeks in the outpatient setting to set up a polysomnogram. We will continue mobilizing the p atient as best as we can. From my perspective, he is stable for transition out of the hospital. He will continue to diurese, intermittently while he remains here.
[2017-12-25] MEDS: Atorvastatin Calcium 10 MG TAB PO SCH (20:22)
[2017-12-26 07:36] VITALS: TEMP 97.7
--- NOTE | 2017-12-26 08:42 | PDOC.PN ---
- Subjective Encounter Start Date: 12/26/17 Encounter Start Time: 08:40 Mr. Berrios was seen today in follow-up. He does not have any complaints. He is breathing better. He has been able to ambulate without difficulty. - Objective Resuscitation Status: Resuscitation Status FULL:Full Resuscitation MAR Reviewed: Yes Vital Signs & Weight: Vital Signs (12 hours) Temp Pulse Resp BP BP Pulse Ox 12/26/17 08:13 97.7 F 81 23 H 91 L 12/26/17 07:35 97.7 F 81 23 H 135/73 90 L 12/26/17 06:54 78 18 12/26/17 03:58 98.3 F 70 16 131/56 L 92 L 12/25/17 23:59 98.3 F 72 18 120/44 L 90 L Weight Weight 336 lb 3.279 oz I&O: 12/25/17 12/26/17 12/27/17 06:59 06:59 06:59 Intake Total 2744 1500 Output Total 4000 3875 Balance -4640 -9309 Result Diagrams: 12/23/17 03:28 12/25/17 04:20 Additional Labs: Accuchecks 12/26/17 12/25/17 12/25/17 05:42 20:10 16:07 POC Glucose 115 H 128 H 155 H 12/25/17 11:13 POC Glucose 152 H Phys Exam - Physical Examination HEENT: PERRLA Respiratory: no rales, no rhonchi, wheezing present + scattered wheezing Cardiovascular: RRR, no significant murmur, no rub Gastrointestinal: soft, non-tender, positive bowel sounds Musculoskeletal: edema present trace pedal edema Dx/Plan (1) Pneumonia, community acquired Code(s): J18.9 - PNEUMONIA, UNSPECIFIED ORGANISM Status: Acute (2) Morbid obesity with BMI of 50.0-59.9, adult Code(s): E66.01 - MORBID (SEVERE) OBESITY DUE TO EXCESS CALORIES; Z68.43 - BODY MASS INDEX (BMI) 50-59.9 , ADULT Status: Acute (3) Acute respiratory failure with hypoxia and hypercapnia Code(s): J96.01 - ACUTE RESPIRATORY FAILURE WITH HYPOXIA; J96.02 - ACUTE RESPIRATORY FAILURE WITH HYPERCAPNIA Status: Acute (4) DM type 2 causing CKD stage 3 Code(s): E11.22 - TYPE 2 DIABETES MELLITUS W DIABETIC CHRONIC KIDNEY DISEASE; N18.3 - CHRONIC KIDNEY DISEASE, STAGE 3 (MODERATE) Status: Acute Qualifiers: Diabetes mellitus parts counterman insulin use: without halfway use Qualified Code(s): E11.22 - Type 2 diabetes mellitus with diabetic chronic kidney disease ; N18.3 - Chronic kidney disease, stage 3 (moderate); N18.3 - Chronic kidney disease, stage 3 (moderate) (5) HTN (hypertension) Code(s): I10 - ESSENTIAL (PRIMARY) HYPERTENSION Status: Acute Qualifiers: Hypertension type: essential hypertension Qualified Code(s): I10 - Essential (primary) hypertension - Plan * COPD exacerbation due to Pneumonia, with acute on chronic respiratory failure - improving * He has home oxygen arranged * He is stable for discharge home.
--- NOTE | 2017-12-26 09:05 | DIS ---
PRIMARY CARE PHYSICIAN: Dr. Shital Mei DATE OF ADMISSION: 12/21/2017 DATE OF DISCHARGE: 12/26/2017 DISCHARGE DISPOSITION: Home. PRIMARY DISCHARGE DIAGNOSES: 1. Acute on chronic respiratory failure with hypoxemia and hypercapnia. 2. Community-acquired pneumonia. 3. Chronic obstructive pulmonary disease exacerbation. 4. Probable obesity hypoventilation syndrome. 5. Morbid obesity with a BMI of 49.6. 6. Diabetes mellitus, type 2. 7. Hypertension. 8. Deconditioning. DISCHARGE MEDICATIONS: Doxycycline 100 mg twice a day for 4 more days, prednisone taper over 4 days, Lasix 20 mg daily, Tradjenta 5 mg daily, simvastatin 20 mg daily, Cardizem 240 mg extended release d aily, carvedilol 3.125 mg twice a day, aspirin 81 mg daily, acetazolamide 500 mg daily. PROCEDURES DONE DURING ADMISSION: The patient had a CT angiogram of the chest which was significant for no pulmonary embolism, but there was multifocal infiltrates and some nonspecific enlarged mediast inal lymph nodes. CODE STATUS: Full code. ALLERGIES: LISINOPRIL. HOSPITAL COURSE: Mr. Berrios is a pleasant 67-year-old gentleman who presented to the emergency room with complaints of feeling short of breath. He has also had previously some nasal congestion and so me fever. He went to his primary care physician. It was noted that his oxygen saturations were in t he 80s and so he was sent to the emergency room. He was admitted and found to have a multifocal pneu monia. Pulmonology was consulted and it was felt that the patient also had some degree of obesity hy poventilation syndrome as well. His echo results were obtained from Dr. Aguirre's office and he had a recent echo which was performed on 12/22/2017 and the ejection fraction was estimated at 50-55%. There was some E to A flow reversal noted suggestive of diastolic dysfunction. He appeared to be mil dly volume overloaded. This was treated during his hospital stay, likely as a result of a mild exace rbation of acute on chronic diastolic heart failure. At the time of discharge, he was euvolemic. He is still hypoxic even after treatment with IV antibiotics for the pneumonia, which is clearing. The refore, he likely will require home oxygen on a long-term basis and this was arranged and he was also instructed to get an outpatient sleep study done as well and to follow up with his primary care aaron hameed on 12/29/2017 which he says he already has an appointment.
[2017-12-26] MEDS: Enoxaparin Sodium 40 MG/0.4 ML SYRINGE SC SCH (10:34)
[2017-12-26] MEDS: predniSONE 20 MG TAB PO SCH (10:34)
[2017-12-26] MEDS: Famotidine 20 MG TAB PO SCH (10:34)
[2017-12-26] MEDS: Furosemide 20 MG TAB PO SCH (10:34)
[2017-12-26] MEDS: Doxycycline 100 MG CAP PO SCH (10:34)
[2017-12-26] MEDS: Alogliptin 25 MG TAB PO SCH (10:34)
[2017-12-26] MEDS: acetaZOLAMIDE Sodium 500 mg Vial IVP SCH (10:34)
[2017-12-26] MEDS: Carvedilol 3.125 MG TAB PO SCH (10:34)
[2017-12-26] MEDS: Sodium Chloride 0.65% Nasal 44 ML BOT EA NARE SCH (10:35)
[2017-12-26] MEDS: Fluticasone Propionate Nasal Spray 16 gm Bottle NASAL SCH (10:42)
[2017-12-26 11:32] VITALS: BP 129/81
--- NOTE | 2018-01-21 15:05 | EKG ---
Test Reason : Blood Pressure : / mmHG Vent. Rate : 102 BPM Atrial Rate : 102 BPM P-R Int : 136 ms QRS Dur : 156 ms QT Int : 386 ms P-R-T Axes : 038 071 000 degrees QTc Int : 503 ms Sinus tachycardia Right bundle branch block T wave abnormality, consider lateral ischemia Abnormal ECG Confirmed by NAE ISAACS ([id number]), industrial editor BREANNE HARPER ([id number]) on 01/21/2018 3:04:13 PM Referred By: Confirmed By:NAE ISAACS
== END 2017-12-26 13:01 | disposition home or self-care (01) | DRG 291 ==
LOC: ERS 16:21 → IMCU/EMU 20:50
PROVIDERS: ADMIT Family Medicine; ATTEND Family Medicine
PROC: 5A09357 Assistance with Respiratory Ventilation, Less than 24 Consecutive Hours, Continuous Positive Airway Pressure (ICD-10-PCS; principal; 2017-12-23)
PROC: 5A09357 Assistance with Respiratory Ventilation, Less than 24 Consecutive Hours, Continuous Positive Airway Pressure (ICD-10-PCS; 2017-12-24)
PROC: 5A09357 Assistance with Respiratory Ventilation, Less than 24 Consecutive Hours, Continuous Positive Airway Pressure (ICD-10-PCS; 2017-12-25)
DX: I13.0 Hypertensive heart and chronic kidney disease with heart failure and stage 1 through stage 4 chronic kidney disease, or unspecified chronic kidney disease (principal); J18.9 Pneumonia, unspecified organism; J96.21 Acute and chronic respiratory failure with hypoxia; N17.9 Acute kidney failure, unspecified; E11.22 Type 2 diabetes mellitus with diabetic chronic kidney disease; N18.3 Chronic kidney disease, stage 3 (moderate); I50.33 Acute on chronic diastolic (congestive) heart failure; J96.22 Acute and chronic respiratory failure with hypercapnia; Z68.43 Body mass index [BMI] 50.0-59.9, adult; E66.2 Morbid (severe) obesity with alveolar hypoventilation; J44.0 Chronic obstructive pulmonary disease with (acute) lower respiratory infection; J44.1 Chronic obstructive pulmonary disease with (acute) exacerbation; J32.9 Chronic sinusitis, unspecified; Z99.81 Dependence on supplemental oxygen; E87.6 Hypokalemia
CPT/HCPCS: 36415; 36416; 71045; 71275; 80048; 80053; 82553; 82805; 83690; 83880; 84443; 84484; 85025; 85379; 87040; 93005; 93306; 93798; 94640; 94660; 96365; 96375; G8978-GP-CK; G8979-GP-CJ; G8987-GO-CI; G8988-GO-CI; G8989-GO-CI; J0456; J0696; J1940; J2930; J3475; J7050; J7620; S0028

== ENCOUNTER 2018-01-14 20:30 | Outpatient (CLI) | payer MEDICARE | END 2018-01-14 20:31 | disposition home or self-care (01) | LOC: SLEEPLAB 20:30 | PROVIDERS: ATTEND Family Medicine | DX: G47.33 Obstructive sleep apnea (adult) (pediatric) (principal); I50.9 Heart failure, unspecified; G47.10 Hypersomnia, unspecified; E66.9 Obesity, unspecified; E11.9 Type 2 diabetes mellitus without complications; G47.00 Insomnia, unspecified; J96.11 Chronic respiratory failure with hypoxia; Z68.43 Body mass index [BMI] 50.0-59.9, adult | CPT/HCPCS: 95811 ==